=== PATIENT | male | born 1980 | race Caucasian/White ===

== ENCOUNTER 2016-12-22 23:56 | Emergency (ER) | payer OTHER ==
--- NOTE | ~2016-12-22 | CR63 ---
[facility]. [facility] A Service of [facility] RADIOLOGY TEXT RESULTS PATIENT: MICHAEL ACUNA LOCATION: SED : 78 UNIT #: [id number] AGE: [address]: Liam Johnson MD SEX: M ORDER DR: [id number] [address] [address] [id number] E MR#: [id number] Acc #: [id number] NAME: MICHAEL ACUNA : 1980 SEX: M STUDY DATE/TIME: 12/23/2016 0:43 UNIT: SED ROOM: STUDY DESCRIPTION: CR Chest 2 View Attending Physician: Liam Johnson M.D. Ordering Physician: Liam Johnson M.D. Primary Care Physician: Liam Miller M.D. MEDICAL IMAGING REPORT This report is preliminary unless electronic signature is present. EXAM PA and lateral views of the chest COMPARISON December 22, 2016 INDICATIONS 36-year-old male with dyspnea for 3 days. FINDINGS No pneumothorax or pleural effusion. Opacity seen on radiograph of December 22, 2016 was likely artifactual and due to motion. It is favored to represent normal bronchovascular structures. There is no current evidence of pneumonia. Cardiomediastinal silhouette is within normal limits. IMPRESSION No evidence of pneumonia. Finding on comparison chest radiograph of yesterday is either reflective of atelectasis or normal bronchovascular structures. No pleural effusion or other acute radiographic abnormality. Dictated by... Mil Reeves M.D. THIS IS AN ELECTRONICALLY VERIFIED REPORT Mil Reeves M.D. at 12/27/2016 10:55 AM Amalia TD: 12/23/2016 08:31 JOB #: [id number] MEDICAL IMAGING REPORT
--- NOTE | ~2016-12-22 | CR72 ---
[facility] A Service of [facility] RADIOLOGY TEXT RESULTS PATIENT: MICHAEL ACUNA LOCATION: SED : 78 UNIT #: [id number] AGE: [address]: Liam Johnson MD SEX: M ORDER DR: [id number] [place] [id number] E MR#: [id number] Acc #: [id number] NAME: MICHAEL ACUNA : 1980 SEX: M STUDY DATE/TIME: 12/22/2016 23:31 UNIT: SED ROOM: STUDY DESCRIPTION: CR Chest Single View Portable Attending Physician: Liam Johnson M.D. Ordering Physician: Liam Johnson M.D. Primary Care Physician: Liam Miller M.D. MEDICAL IMAGING REPORT This report is preliminary unless electronic signature is present. EXAM Portable AP view of the chest COMPARISON None INDICATIONS 36-year-old male with dyspnea for 3 days. FINDINGS Cardiomediastinal silhouette is within normal limits. No evidence of pneumothorax, pleural effusion or acute airspace disease. There are band-like opacities in the left lower lobe which may represent normal bronchovascular structures, not well evaluated due to motion. No pleural effusion. Heart size and mediastinal contours are normal. IMPRESSION There is questionable band-like opacity in the left lower lobe which may represent normal bronchovascular structures, not well evaluated due to motion. This could alternatively represent minimal left basilar atelectasis. Developing pneumonia is thought unlikely, but not entirely excluded. No pleural effusion. Dictated by... Mil Reeves M.D. THIS IS AN ELECTRONICALLY VERIFIED REPORT Mil Reeves M.D. at 12/23/2016 7:44 AM PAUL/varun TD: 12/23/2016 07:38 JOB #: [id number] [facility] A Service of [facility] RADIOLOGY TEXT RESULTS PATIENT: MICHAEL ACUNA LOCATION: SED : 78 UNIT #: [id number] AGE: [address]: Liam Johnson MD SEX: M ORDER DR: MEDICAL IMAGING REPORT
--- NOTE | ~2016-12-22 | EKG ---
PATIENT: MICHAEL ACUNA UNIT #: [id number] Ventricular Rate: 85 BPM Atrial Rate: 85 BPM P-R Interval: 160 ms QRS Duration: 86 ms Q-T Interval: 364 ms QTC Calculation(Bezet): 433 ms P Randolph: 16 degrees Calculated R Randolph: 37 degrees Calculated T Randolph: 14 degrees Diagnosis Line: Normal sinus rhythm Diagnosis Line: Normal ECG Diagnosis Line: No previous ECGs available Diagnosis Line: Confirmed by ZOHRA GREGORIO MD ([id number]) on 12/23/2016 Diagnosis Line: 4:43:25 PM INTERPRETING MD: JG NUÑEZ
[2016-12-22 23:39] LABS: BASOPHIL# 0.1 X10e3 (0-0.3); BASOPHIL% 1.1 % (0-2.5); EOSINOPHIL# 0.2 X10e3 (0-0.7); EOSINOPHIL% 2.1 % (0.0-7.0); HEMATOCRIT 30.1 % (38.0-50.0); HEMOGLOBIN 10.2 gm/dL (13.0-16.0); LYMPHOCYTE# 3.2 X10e3 (1.0-3.5); LYMPHOCYTE% 34.4 % (17.0-45.0); MEAN CELL VOLUME 89.8 FL (83-96); MEAN CORPUSCULAR HEMOGLOBIN 30.3 PG (28-34); MEAN CORPUSCULAR HGB CONC 33.7 g/dL (30-36); MEAN PLATELET VOLUME 8.2 FL (6.5-11.5); MONOCYTE# 0.7 X10e3 (0-1.0); MONOCYTE% 7.8 % (3.0-12.0); NEUTROPHIL# 5.1 X10e3 (1.5-7.1); NEUTROPHIL% 54.6 % (40-75); PLATELET COUNT 254 X10e3 (140-420); RED BLOOD COUNT 3.35 X10e (3.90-5.60); RED CELL DISTRIBUTION WIDTH 12.6 % (11.0-15.5); WHITE BLOOD COUNT 9.3 X10e3 (4.0-10.5)
[2016-12-22 23:40] LABS: DIFF IND NO
[2016-12-22 23:46] LABS: INFLUENZA A NEG (NEG); INFLUENZA B NEG (NEG)
[2016-12-22 23:47] LABS: URINE SOURCE CLEAN CATCH
[2016-12-22 23:48] LABS: INR 1.2; PROTHROMBIN TIME (PATIENT) 13.1 SECONDS (9.5-12.4)
[2016-12-22 23:49] LABS: POC - CKMB 2.3 ng/mL (0.0-7.9); POC - MYOGLOBIN 57.4 ng/mL (0.0-169.0); POC - TROPONIN <0.05 ng/mL (<=0.05)
[2016-12-22 23:50] LABS: MICRO INDICATED? NO; URINE APPEARANCE CLEAR; URINE BILIRUBIN NEG (NEG); URINE BLOOD NEG (NEG); URINE COLOR YELLOW; URINE GLUCOSE NEG (NORM); URINE KETONE NEG (NEG); URINE LEUKOCYTE ESTERASE NEG (NEG); URINE NITRATE NEG (NEG); URINE PROTEIN NEG (NEG); URINE UROBILINOGEN 0.2 MG/DL (NORM)
[2016-12-22 23:53] LABS: ALBUMIN SERUM 3.8 g/dL (3.5-5.0); ALKALINE PHOSPHATASE 44 U/L (32-92); ALT (SGPT) 25 U/L (10-40); AST (SGOT) 25 U/L (10-42); BILIRUBIN,TOTAL 0.2 mg/dL (0.2-2.0); BLOOD UREA NITROGEN 39 mg/dL (9-23); BUN/CREATININE RATIO 35.45; CALCIUM SERUM 8.5 mg/dL (8.4-10.2); CARBON DIOXIDE 28 mmol/L (22-31); CHLORIDE 105 mmol/L (100-111); CREATININE SERUM 1.1 mg/dL (0.6-1.4); GLOM FILT RATE Estimated ABOVE60 mL/min (>60); GLUCOSE FASTING 90 mg/dL (70-110); PROTEIN TOTAL SERUM 6.4 g/dL (6.0-8.3); SODIUM 141 mmol/L (135-145)
[2016-12-22 23:54] LABS: ALCOHOL BLOOD <5 mg/dL (0); BILIRUBIN, DIRECT <0.1 mg/dL (0.0-0.2); BILIRUBIN,INDIRECT 0.1 mg/dL (0.0-0.9)
[2016-12-22 23:55] LABS: PARTIAL THROMBOPLASTIN TIME 26.7 SECONDS (25.6-38.1)
[~2016-12-22 23:56] MED LIST: BENZONATATE PO; BLOOD PRESSURE MED PO; CLEOCIN HCL300 M1 PO; FLONASE 0.05% N16 GM; HYDROCHLOROTHIA25 MG PO; HYDROCODON-ACE1 EAC9 PO; MOTRIN PO; NO MEDICATIONS; NORVASC10 MG PO; SUDAFED PO; TENORMIN50 MG PO; VOLTAREN75 MG PO
[2016-12-23 00:01] LABS: AMPHETAMINE POS (NEG); BARBITURATES NEG (NEG); BENZODIAZEPINES NEG (NEG); COCAINE NEG (NEG); MARIJUANA NEG (NEG); OPIATES NEG (NEG); TRICYCLIC ANTIDEPRESSANTS NEG (NEG); U METHADONE NEG (NEG)
== END 2016-12-23 01:40 | disposition left against medical advice (07) ==
LOC: SED 23:56
PROVIDERS: Emergency Medicine
DX: K92.2 Gastrointestinal hemorrhage, unspecified (principal); R06.00 Dyspnea, unspecified; I10 Essential (primary) hypertension; F17.210 Nicotine dependence, cigarettes, uncomplicated; Z79.899 Other long term (current) drug therapy
CPT/HCPCS: 36415; 71010; 71020; 80048; 80076; 80307; 81003; 82553; 83874; 84484; 85025; 85610; 85730; 87804; 93005; 96374; 96375; 99284; C9113; G0480

== ENCOUNTER → 2017-02-15 | Outpatient (CLI) | payer OTHER ==
--- NOTE | ~2017-02-15 | CT15 ---
[facility] A Service of [facility] RADIOLOGY TEXT RESULTS PATIENT: MICHAEL ACUNA LOCATION: [facility] : 78 UNIT #: [id number] AGE: [address]: SOFY LECHUGA MD SEX: M ORDER DR: [id number] [place] [id number] O MR#: [id number] Acc #: [id number] NAME: MICHAEL ACUNA : 1980 SEX: M STUDY DATE/TIME: 02/15/2017 11:44 UNIT: [facility] ROOM: STUDY DESCRIPTION: CT Angio Chest Attending Physician: Sofy Lechuga M.D. Referring Physician: Sofy Lechuga M.D. Ordering Physician: Sofy Lechuga M.D. Primary Care Physician: Sofy Lechuga M.D. MEDICAL IMAGING REPORT This report is preliminary unless electronic signature is present. EXAM CT angiogram of the chest. INDICATION Aortic aneurysm. Follow up. TECHNIQUE CT angiogram of the chest was performed following the administration of IV contrast. Coronal, sagittal, and 3-D reformatted images were obtained. This CT exam was performed with one or more of the following radiation dose reduction techniques: automatic exposure control, adjustment of mA and/or kV according to patient size, and iterative reconstruction. COMPARISON STUDIES Comparison is made with 01/20/2016. FINDINGS The ascending aorta is borderline enlarged measuring about 3.9 cm in greatest dimension. The descending thoracic aorta is tortuous but within normal limits for size. The lung benson are clear. There is no suspicious lymphadenopathy. No pleural effusion. Limited imaging of the upper abdomen demonstrates 2 small benign hemangiomas within the inferior left lobe of the liver and also additional benign hemangiomas elsewhere throughout the liver, mainly within the left lobe. The largest of these measures roughly 2.9 cm. Bone windows are unremarkable. IMPRESSION Stable borderline dilatation of the ascending aorta. [facility] A Service [facility] RADIOLOGY TEXT RESULTS PATIENT: MICHAEL ACUNA LOCATION: [facility] : 78 UNIT #: [id number] AGE: [address]: SOFY LECHUGA MD SEX: M ORDER DR: Dictated by... Nasir Canales M.D. THIS IS AN ELECTRONICALLY VERIFIED REPORT Nasir Canales M.D. at 02/17/2017 9:30 AM APOLLO/jamie TD: 02/16/2017 09:39 JOB #: [id number] MEDICAL IMAGING REPORT Page 1 of 1
[2017-02-15 12:00] LABS: POC - CREATININE 1.23 mg/dL (0.64-1.27); POC - GFR >60.0 mL/min (>60)
== END | disposition home or self-care (01) ==
LOC: SCT 11:19
PROVIDERS: Surgery
DX: I71.2 Thoracic aortic aneurysm, without rupture (principal)
CPT/HCPCS: 71275; 82565; Q9967